=== PATIENT | female | born 1995 | race Caucasian/White ===

== ENCOUNTER 2019-09-09 15:58 | Inpatient (IN) ==
[2019-09-09] MEDS ORDERED: methylPREDNISolone SOD SUC 125 MG/2 ML VIAL IV STA (17:30)
[2019-09-09 17:41] LABS: Basophils # 0.1 10*3/uL (0.0-0.2); Basophils % 0.6 % (0.0-0.8); Eosinophils # 0.1 10*3/uL (0.0-0.87); Hematocrit 40.6 VOL% (35.7-47.0); Hemoglobin 13.9 GM/DL (12.0-16.0); Immature Granulocytes % 0.7 %; Immature Granulocytes Absolute 0.09 #; Lymphocytes # 2.4 10*3/uL (1.4-4.0); Lymphocytes % 19.6 % (21.3-54.2); Mean Corpuscular HGB Conc 34.2 GM/DL (32-36); Mean Corpuscular Volume 91.9 FL (87-102); Monocytes % 6.6 % (1.7-12.7); Neutrophils % 71.5 % (38.7-73.9); Red Blood Count 4.42 MC/CUMM (3.8-5.5); Red Cell Distribution Width 12.7 % (9.3-17.3)
[2019-09-09 17:46] LABS: Platelet Count 13 T/CUMM (130-400)
[2019-09-09 17:55] LABS: PT Patient Result 10.9 SECS (9.6-12.2); Partial Thromboplastin Time 25.6 SECS (20.8-36.0)
[2019-09-09 18:07] LABS: Albumin 4.2 G/DL (3.4-5.0); Bilirubin,Total 0.8 MG/DL (0.2-1.0); Calcium 9.3 MG/DL (8.5-10.1); Total Protein 7.8 G/DL (6.4-8.3)
[2019-09-09 18:15] LABS: Folate 22.3 NG/ML (5.4-24.0)
[2019-09-09 18:16] LABS: Free T4 (Free Thyroxine) 1.17 NG/DL (0.76-1.46); Thyroid Stimulating Hormone 1.87 uIU/ml (0.358-3.74)
[2019-09-09 18:19] LABS: Platelet Estimate Decreased
[2019-09-09] MEDS ORDERED: ONDANSETRON 4 MG/2 ML VIAL IV PRN (19:45)
[2019-09-09] MEDS ORDERED: ACETAMINOPHEN 325 MG TABLET PO PRN (19:45)
[2019-09-09] MEDS ORDERED: DOCUSATE SODIUM 100 MG CAPSULE PO PRN (19:45)
[2019-09-10 01:33] LABS: Amorphous Crystals,Urine Moderate /HPF (Few); Apearance,Urine CLOUDY (Clear); Bilirubin,Urine Negative (Negative); Blood, Urine Negative (Negative); Glucose,Urine (UA) 150 mg/dL (Negative); Ketones,Urine Negative (Negative); Nitrite,Urine Negative (Negative); Protein,Urine Negative; Squamous Epithelial Cell,Urine Occasional /HPF (0-10); Urine Color Yellow (Yellow); Urine Specific Gravity 1.023 (1.001-1.035); Urine Urobilinogen < 2.0 EU/DL (0.2-1.0)
[2019-09-10 05:32] LABS: Basophils % 0.1 % (0.0-0.8); Hemoglobin 13.5 GM/DL (12.0-16.0); Immature Granulocytes % 0.8 %; Immature Granulocytes Absolute 0.11 #; Lymphocytes # 1.3 10*3/uL (1.4-4.0); Lymphocytes % 9.4 % (21.3-54.2); Mean Corpuscular HGB Conc 34.6 GM/DL (32-36); Mean Corpuscular Volume 90.5 FL (87-102); Mean Platelet Volume 13.9 FL (9.6-12.0); Monocytes % 1.1 % (1.7-12.7); Neutrophils % 88.6 % (38.7-73.9); Red Blood Count 4.31 MC/CUMM (3.8-5.5); Red Cell Distribution Width 12.5 % (9.3-17.3); White Blood Count 13.9 T/CUMM (4-12)
[2019-09-10 05:34] LABS: Calcium 9.2 MG/DL (8.5-10.1); Osmolality,Calculated 276.7 MOS/KG (273-304)
[2019-09-10 05:41] LABS: Platelet Count 18 T/CUMM (130-400)
[2019-09-10 05:48] LABS: Hypochromasia 1+; Platelet Estimate Decreased
[2019-09-10] MEDS ORDERED: NON-FORMULARY MEDICATION (Dextroamphetamine-Amphetamine 30 MG) PO SCH (08:00)
[2019-09-10] MEDS ORDERED: ACETAMINOPHEN 325 MG TABLET PO PRN (11:33)
[2019-09-10] MEDS ORDERED: diphenhydrAMINE 50 MG/1 ML VIAL IV PRN (11:33)
[2019-09-10] MEDS ORDERED: SODIUM CHLORIDE 0.9% 1,000 ML IV PRN (11:33)
[2019-09-10] MEDS: DEXAMETHASONE 4 MG TABLET PO SCH (12:46)
[2019-09-10 15:01] LABS: Hepatitis B Core IgM Quant 0.07 Index; Hepatitis B Surface Ag Quant < 0.10 Index; Hepatitis B Surface Ag Result Negative (Negative); Hepatitis C Virus Ab Quant 0.07 Index; Hepatitis C Virus Ab Result Negative (Negative)
[2019-09-11 07:56] LABS: Basophils % 0.1 % (0.0-0.8); Hematocrit 36.4 VOL% (35.7-47.0); Hemoglobin 12.5 GM/DL (12.0-16.0); Immature Granulocytes % 0.9 %; Immature Granulocytes Absolute 0.22 #; Lymphocytes # 1.6 10*3/uL (1.4-4.0); Lymphocytes % 6.2 % (21.3-54.2); Mean Corpuscular HGB Conc 34.3 GM/DL (32-36); Mean Corpuscular Volume 92.6 FL (87-102); Mean Platelet Volume 12.2 FL (9.6-12.0); Monocytes % 3.7 % (1.7-12.7); Neutrophils % 89.1 % (38.7-73.9); Red Blood Count 3.93 MC/CUMM (3.8-5.5); Red Cell Distribution Width 12.6 % (9.3-17.3); White Blood Count 25.5 T/CUMM (4-12)
[2019-09-11 07:58] LABS: Platelet Count 82 T/CUMM (130-400)
[2019-09-11 08:23] LABS: Band Neutrophils 1 % (0-10); Hypochromasia Slight; Lymphocytes 3 % (20-55); Segmented Neutrophils 94 % (50-85); Total Cells Counted 100
[2019-09-11 08:24] LABS: Microcytosis Slight; Platelet Estimate Decreased
[2019-09-11] MEDS: DEXAMETHASONE 4 MG TABLET PO SCH (09:16)
[2019-09-11 11:30] VITALS: BP 118/58
[2019-09-11 20:39] LABS: HIV Antigen/Antibody Result Nonreactive (Nonreactive)
== END 2019-09-11 13:14 | disposition home or self-care (01) | DRG 813 ==
LOC: N.EDINP 15:58 → N.ED 15:58 → N.2W 20:17
PROVIDERS: ADMIT Internal Medicine; ATTEND Internal Medicine